=== PATIENT | female | born 1965 | race Caucasian/White ===

== ENCOUNTER → 2019-07-25 | Outpatient (CLI) | payer BC, OTHER ==
[~2019-07-25] MED LIST: CELEBREX 200 M200 M1 PO; LITE COAT ASPI325 MG PO
== END ==
LOC: SJCVC 07-18 16:27 → SJCVCIMAG 08:37
DX: Z01.810 Encounter for preprocedural cardiovascular examination (principal); I08.1 Rheumatic disorders of both mitral and tricuspid valves; D68.59 Other primary thrombophilia; I49.3 Ventricular premature depolarization; R94.31 Abnormal electrocardiogram [ECG] [EKG]

== ENCOUNTER → 2019-08-01 | Outpatient (CLI) | payer BC, OTHER ==
[~2019-08-01] VITALS: Ht 167.6 cm; Wt 75.3 kg
[2019-08-01 08:32] LABS: HEMATOCRIT 39.5 % (37.0-47.0); HEMOGLOBIN 13.4 gm/dL (12.0-15.0); MCH 31.1 pg (26.0-34.0); MCV 91.4 fL (80.0-100.0); RBC 4.32 mil/uL (4.20-5.00); WBC 5.5 thou/uL (4.0-11.0)
[2019-08-01 08:38] VITALS: BP 115/63
[2019-08-01 08:42] LABS: CALCIUM 8.5 mg/dL (8.5-10.1); CREATININE 0.9 mg/dL (0.6-1.0); POTASSIUM 3.8 mmol/L (3.5-5.1)
--- NOTE | 2019-08-01 09:00 | EKG ---
[facility] [place] [address] ELECTROCARDIOGRAM REPORT Name: ALANNAH BUSH Room #: REG [facility]#: [id number] Admission: 08/01/19 Attend Phys: Wilfredo Edmonds Discharge: Date of : 61 Report #: [id number] THIS REPORT FOR: cc: Natanael Mckoy Stephen D MD Lundgren, Craig H. MD [facility] ~ THIS REPORT FOR: //name// [facility] Test Date: 2019-08-01 Test Time: 08:27:04 Pat Name: ALANNAH BUSH Department: Room: Gender: F [employer]: [facility] : 1965 Requested By: Wilfredo Edmonds Order Number: [id number] MD: Yosef Richardson Measurements Intervals [place] Rate: 71 P: -30 NE: 178 QRS: -16 QRSD: 92 T: 22 QT: 402 QTc: 437 Interpretive Statements Sinus rhythm No significant abnormality No previous ECG available for comparison Electronically Signed On 08-01-2019 8:58:21 CDT by Yosef Richardson [email or web address] <ELECTRONICALLY SIGNED> By: Yosef Richardson MD, [facility] 08/01/1960 6 6 Yosef Richardson MD, [facility] /EPI
--- NOTE | 2019-08-02 09:20 | CATHLAB ---
[facility] [address] INVASIVE PROCEDURE REPORT Name: ALANNAH BUSH Room #: REG [facility].#: [id number] Admission: 08/01/19 Attend Phys: Wilfredo Edmonds Discharge: Date of : 61 Report #: [id number] THIS REPORT FOR: cc: Natanael Mckoy Stephen D MD Lammoglia, Francisco J. MD ~ APPROVED REPORT Study performed: 08/01/2019 09:51:05 Patient Details Patient Status: Out-Patient Room #: The patient is a 53 year-old female Event Personnel Wilfredo Edmonds Card Decorator, Lux Fields RN RN, Yadira Smith Jackson, Valisa Monitor, Tomas Quinteros RTJennifer Monitor Procedures Performed Art Access - R femoral artery* Left Heart Cath w/or w/o Coronaries [id number] [facility] 16661 Initial Mod Sed Same Phys/QHP [facility] [id number] Mod Sed Same Phys/QHP [id number] supervision of conscious sedation Indication Positive stress test, Chest pain Procedure Narrative The Right Groin^ was infiltrated with 1% Lidocaine subcutaneous anesthesia. A PINNACLE 4FR Sheath #[id number] sheath was inserted into the RFA^. Coronary angiography was performed using coronary diagnostic catheters. The right coronary system was accessed and visualized with a JR4 catheter. The left coronary system was accessed and visualized with a JL4 catheter. The left ventricle was accessed and visualized with a PIGTAIL catheter. Hemostasis was obtained with manual pressure following sheath removal without any complications. The patient tolerated the procedure well and there were no complications associated with the procedure. There was no hematoma. Intraoperative Conscious Sedation Sedation start time: 1008 Case end Time: 1036 [facility] [address] [place] [address] INVASIVE PROCEDURE REPORT Name: RACHELLEALANNAH L Room #: [facility]#: [id number] Admission: 08/01/19 Attend Phys: Wilfredo Lassiter Discharge: Date of : 61 Report #: [id number] Versed 4 mg Fluoro Time: 1431.00 minutes Dose: DAP 9267.00 cGycm2 1431 mGy Contrast Type and Amount: Omnipaque 90 ml Coronary Angiography The patient's coronary anatomy is right dominant. Diagnostic Cath Left Main Normal origin moderate caliber vessel which bifurcates the left and descending left circumflex. There is a distal concentric lesion of approximately 30 to 35% noted this is not flow-limiting. LAD Moderate caliber type II LAD which courses in the anterior interventricular sulcus giving rise to several diagonal branches. The distal third the vessel tapers rapidly to a small string-like vessel prior to its termination. In its course there is tortuosity noted with mild plaquing in the midportion of the LAD Circumflex Moderate caliber vessel with mild 30% proximal plaquing. This is not flow-limiting. The vessel continues on giving rise to marginal artery which bifurcates. The circumflex proper then proceeded in the AV groove treatment is a small caliber posterior wall branch OM1 Small to moderate caliber bifurcating vessel without significant high-grade lesions noted Right Coronary Moderate caliber vessel normal origin proceeding in the AV groove giving rise to right sided structures. It then proceeds to the crux of the heart where the posterior descending artery arises free of high-grade disease. The vessel then terminates as a small posterior wall branch. In the proximal RCA the origin of the right ventricular branch the vessel has a plaque which is eccentric and less than 50%. This is not flow-limiting R PDA Small caliber vessel without significant high-grade lesions noted Left Ventriculography Left Ventriculography was not performed. Hemodynamics The aortic pressure is 115/65 mmHg with a mean of 109 mmHg. The left ventricular pressure is 118/7 mmHg with a mean of mmHg. The left ventricular end diastolic pressure is 15 mmHg. Conclusion [facility] [address] [place] [address] INVASIVE PROCEDURE REPORT Name: ALANNAH BUSH Room #: [facility]#: [id number] Admission: 08/01/19 Attend Phys: Wilfredo Lassiter Discharge: Date of : 61 Report #: [id number] 1. Coronary disease mild nonobstructive 2. Normal hemodynamics Recommendations Cardiac Risk Reduction Program Medical Therapy Will initiate medical regimen depending on symptomatology. Secondary prevention with dietary changes statins etc. will be implemented <ELECTRONICALLY SIGNED> By: Wilfredo Edmonds MD 08/02/19917 7 7 Wilfredo Edmonds MD /INF
== END | disposition home or self-care (01) ==
LOC: CATH 07:49
PROVIDERS: Internal Medicine
DX: R94.39 Abnormal result of other cardiovascular function study (principal); R07.9 Chest pain, unspecified; I25.10 Atherosclerotic heart disease of native coronary artery without angina pectoris; M19.90 Unspecified osteoarthritis, unspecified site; Z98.890 Other specified postprocedural states; Z79.899 Other long term (current) drug therapy; Z86.711 Personal history of pulmonary embolism; Z79.01 Long term (current) use of anticoagulants; Z82.49 Family history of ischemic heart disease and other diseases of the circulatory system; Z87.891 Personal history of nicotine dependence